=== PATIENT | female | born 1950 | race Caucasian/White ===

== ENCOUNTER → 2019-05-20 | Outpatient (CLI) | payer BC, MEDICARE ==
--- NOTE | 2019-05-20 12:25 | CT ---
EXAMINATION TYPE: CT abdomen pelvis w con DATE OF EXAM: 05/20/2019 COMPARISON: 07/19/2014 INDICATION: LLQ pain, nausea, diarrhea DLP: 775.5 mGycm, Automated exposure control for dose reduction was used. CONTRAST: 100 mL of Isovue 300. Study performed with Oral Contrast TECHNIQUE: Axial images were obtained from above the diaphragm to the pubic rami in the axial plane a t 5 mm thick sections. Reconstructed images are reviewed on the computer in the coronal plane. FINDINGS: Limited CT sections are obtained the lung bases. The lung bases are clear. CT ABDOMEN: Liver: There may be some minimal fatty infiltration of liver. Cyst appears to be present within the c audate head measuring 1.7 cm and 22 Hounsfield units. This was present previously and appears stable. Spleen: Normal, splenule is present Pancreas: Normal Adrenal glands: The adrenal glands are normal. Gallbladder: Surgically absent Kidneys: No masses are evident. No hydronephrosis is present. Peripelvic cysts are present at the i nferior pole left kidney. Delayed images were obtained through the kidneys, which remain unremarkabl e. Aorta: Vascular calcification is within the aorta. Inferior vena cava: Normal. CT PELVIS: Loops of bowel within the abdomen and pelvis are normal. Fecal debris is within the colon. Loops of bowel distended with oral contrast Unremarkable. Diverticular changes without acute diverticulitis is present. Appendix: Normal as visualized. Urinary bladder: No obvious abnormality. Some cystocele is likely present. Genitourinary structures: Uterus and ovaries are not identified. Osseous structures: No suspicious lytic or sclerotic lesions. IMPRESSIONS: 1. Diverticulosis without acute diverticulitis. 2. Cystocele of the urinary bladder is suspected.
== END | disposition home or self-care (01) ==
LOC: RADCTMAIN 10:11
PROVIDERS: ATTEND Family Medicine
DX: K57.90 Diverticulosis of intestine, part unspecified, without perforation or abscess without bleeding (principal); R10.32 Left lower quadrant pain; R50.9 Fever, unspecified
CPT/HCPCS: 82565; 84520; 74177; 36415; Q9967

== ENCOUNTER 2019-06-12 20:32 | Observation (INO) | payer MEDICARE ==
[2019-06-12 21:23] LABS: Basophils # (A) 0.1 k/uL (0-0.2); Basophils % (A) 1 %; Eosinophils # (A) 0.2 k/uL (0-0.7); Eosinophils % (A) 2 %; HCT 45.2 % (34.0-46.0); HGB 14.4 gm/dL (11.4-16.0); Lymphocytes # (A) 1.2 k/uL (1.0-4.8); Lymphocytes % (A) 14 %; MCH 29.2 pg (25.0-35.0); MCHC 31.9 g/dL (31.0-37.0); MCV 91.4 fL (80.0-100.0); Mean Platelet Volume 8.2; Monocytes # (A) 0.4 k/uL (0-1.0); Monocytes % (A) 5 %; Neutrophils # (A) 6.7 k/uL (1.3-7.7); Neutrophils % (A) 78 %; Platelet Count 193 k/uL (150-450); RBC 4.94 m/uL (3.80-5.40); WBC 8.7 k/uL (3.8-10.6)
[2019-06-12 21:32] LABS: Partial Thromboplastin Time 22.2 sec (22.0-30.0)
[2019-06-12 21:33] LABS: ALT 30 U/L (4-34); AST 41 U/L (14-36); African American GFR (CKD) >90 (>60 ml/min/1.73 sqM); Albumin 4.2 g/dL (3.5-5.0); Alkaline Phosphatase 86 U/L (38-126); Anion Gap 7 mmol/L; Blood Urea Nitrogen 21 mg/dL (7-17); Calcium 9.7 mg/dL (8.4-10.2); Carbon Dioxide 27 mmol/L (22-30); Chloride 105 mmol/L (98-107); Creatine Kinase 176 U/L (30-135); Glucose 136 mg/dL (74-99); Magnesium 1.8 mg/dL (1.6-2.3); Non-African American GFR(CKD) 87 (>60 ml/min/1.73 sqM); Potassium 4.4 mmol/L (3.5-5.1); Sodium 139 mmol/L (137-145); Total Bilirubin 1.3 mg/dL (0.2-1.3); Total Protein 7.3 g/dL (6.3-8.2)
--- NOTE | 2019-06-12 21:33 | XR ---
EXAMINATION TYPE: XR chest 2V DATE OF EXAM: 06/12/2019 COMPARISON: 03/13/2011 HISTORY: Chest pain TECHNIQUE: Frontal and lateral views of the chest are obtained. FINDINGS: There is no focal air space opacity, pleural effusion, or pneumothorax seen. The cardiac silhouette size is enlarged. The osseous structures are intact. Dextroscoliosis of the thoracic spi ne is seen. Mild multilevel degenerative change of the thoracic spine with similar slight wedging of the midthoracic vertebral body in comparison to 2012. Cholecystectomy clips are seen. IMPRESSION: No acute cardiopulmonary process.
--- NOTE | 2019-06-12 21:58 | ED ---
Chest Pain HPI - General Chief Complaint: Chest Pain Stated Complaint: Chest pain Time Seen by Provider: 06/12/19 20:49 Source: patient Mode of arrival: wheelchair Limitations: no limitations - History of Present Illness Initial Comments: The patient is a 60-year-old female with past history of hypertension who presents to the emergency room for palpitations. Patient reports that her palpitations started last night. She states when she went to bed he felt better however woke up this morning continues to have palpitations or chest. She has associated discomfort but denies chest pain. Feels like her heart racing. Reports high blood pressure. She took an extra dose of her atenolol 100 mg approximately 3 hours prior to arrival. States that she [facility] the [facility]. Last stress test was 5 years ago. Has never had a cath. Denies any other medication changes. Denies ripping or tearing sensation to her back. Denies unilateral numbness or weakness. No cough or hemoptysis. Denies nausea, vomiting or diaphoresis. There are no alleviating, precipitating or factors - Related Data Home Medications Medication Instructions Recorded Confirmed Aspirin 81 mg PO HS 11/12/13 06/13/19 Rosuvastatin Calcium [Crestor] 20 mg PO HS 11/12/13 06/13/19 Cholecalciferol [Vitamin D3 (25 5,000 unit PO HS 06/13/19 06/13/19 Mcg = 1000 Iu)] Diphenoxylate HCl/Atropine 1 tab PO TID 06/13/19 06/13/19 [Lomotil 2.5-0.025 mg Tablet] L.acidoph,Paracasei, B.lactis 1 cap PO HS 06/13/19 06/13/19 [Probiotic] Ubidecarenone [Co Q-10] 200 mg PO HS 06/13/19 06/13/19 Previous Rx's Medication Instructions Recorded Levothyroxine Sodium [Synthroid] 75 mcg PO DAILY@0630 30 Days #30 06/14/19 tab Valsartan 80 mg PO BID #60 tab 06/14/19 Allergies Allergy/AdvReac Type Severity Reaction Status Date / Time No Known Allergies Allergy Verified 06/13/19 09:48 Review of Systems ROS Statement: Those systems with pertinent positive or pertinent negative responses have been documented in the HPI. ROS Other: All systems not noted in ROS Statement are negative. EKG Findings - EKG Comments: EKG Findings:: EKG demonstrates a sinus rhythm with a ventricular rate of 70. WA interval 200. QRS 96. QTC of 432. Multiple PACs. ST elevation in aVR. ST depression in 1 and aVL. Abnormal EKG with no old EKG available for comparison Past Medical History Past Medical History: Hyperlipidemia, Hypertension, Thyroid Disorder Additional Past Medical History / Comment(s): diverticulitis History of Any Multi-Drug Resistant Organisms: None Reported Past Surgical History: Bladder Surgery, Cholecystectomy, Hysterectomy Additional Past Surgical History / Comment(s): rudy fundiplication Past Anesthesia/Blood Transfusion Reactions: No Reported Reaction Past Psychological History: No Psychological Hx Reported Smoking Status: Never smoker Past Alcohol Use History: None Reported Past Drug Use History: None Reported - Past Family History Mother History Unknown: Yes Family Medical History: CVA/TIA Father History Unknown: Yes Family Medical History: Cancer, CVA/TIA Sister(s) Family Medical History: CVA/TIA General Exam Limitations: no limitations General appearance: alert, in no apparent distress Head exam: Present: atraumatic, normocephalic, normal inspection Eye exam: Present: normal appearance, PERRL, EOMI. Absent: scleral icterus, conjunctival injection, periorbital swelling ENT exam: Present: normal exam, mucous membranes moist Neck exam: Present: normal inspection. Absent: tenderness, meningismus, lymphadenopathy Respiratory exam: Present: normal lung sounds bilaterally. Absent: respiratory distress, wheezes, rales, rhonchi, stridor Cardiovascular Exam: Present: regular rate, irregular rhythm, normal heart sounds. Absent: systolic murmur, diastolic murmur, rubs, gallop, clicks GI/Abdominal exam: Present: soft, normal bowel sounds. Absent: distended, tenderness, guarding, rebound, rigid Extremities exam: Present: normal inspection, full ROM, normal capillary refill. Absent: tenderness, pedal edema, joint swelling, calf tenderness Back exam: Present: normal inspection Neurological exam: Present: alert, oriented X3, CN II-XII intact Psychiatric exam: Present: normal affect, normal mood Skin exam: Present: warm, dry, intact, normal color. Absent: rash Course Vital Signs 06/12/19 06/12/19 20:33 22:35 Temperature 98.1 F Pulse Rate 61 61 Respiratory 20 18 Rate Blood Pressure 138/75 128/74 O2 Sat by Pulse 97 97 Oximetry Chest Pain MDM - MDM On arrival patient is placed in room 17. A thorough history and physical exam is performed. Patient does have an abnormal EKG however there is nothing to compare to. Laboratory studies were conducted. CBC and CMP are normal. Troponin is negative. BNP is 5650. Chest x-ray demonstrates no acute process. I did recommend hospital admission for which the patient did agree. She'll be admitted [facility]. I will consult cardiology. This remained in stable condition awaiting transport to the floor Disposition Clinical Impression: Palpitations Disposition: ADMITTED IP TO THIS HOSP Condition: Stable Is patient prescribed a controlled substance at d/c from ED?: No Decision to Admit Reason: Admit from EC Decision Date: 06/12/19 Decision Time: 22:53
[2019-06-12] MEDS ORDERED: NALOXONE 0.4 MG/ML 1 ML VIAL IV PRN (22:53)
[2019-06-13 06:13] LABS: Basophils % (A) 1 %; Eosinophils # (A) 0.1 k/uL (0-0.7); Eosinophils % (A) 3 %; HCT 41.4 % (34.0-46.0); Lymphocytes # (A) 1.5 k/uL (1.0-4.8); Lymphocytes % (A) 27 %; MCH 30.6 pg (25.0-35.0); MCHC 33.8 g/dL (31.0-37.0); MCV 90.7 fL (80.0-100.0); Mean Platelet Volume 8.4; Monocytes # (A) 0.3 k/uL (0-1.0); Monocytes % (A) 6 %; Neutrophils # (A) 3.4 k/uL (1.3-7.7); Neutrophils % (A) 62 %; Platelet Count 201 k/uL (150-450); RBC 4.56 m/uL (3.80-5.40); RDW 13.1 % (11.5-15.5); WBC 5.5 k/uL (3.8-10.6)
[2019-06-13 06:25] LABS: African American GFR (CKD) >90 (>60 ml/min/1.73 sqM); Anion Gap 4 mmol/L; Blood Urea Nitrogen 18 mg/dL (7-17); Calcium 9.1 mg/dL (8.4-10.2); Carbon Dioxide 30 mmol/L (22-30); Chloride 106 mmol/L (98-107); Glucose 91 mg/dL (74-99); Non-African American GFR(CKD) >90 (>60 ml/min/1.73 sqM); Potassium 4.3 mmol/L (3.5-5.1); Sodium 140 mmol/L (137-145)
[2019-06-13] MEDS: LEVOTHYROXINE 75 MCG TAB PO SCH (08:57)
[2019-06-13] MEDS: ASPIRIN 81 MG PO SCH (08:57)
[2019-06-13] MEDS ORDERED: ATORVASTATIN 40 MG TAB PO SCH (09:00)
[2019-06-13] MEDS ORDERED: ATENOLOL 25 MG TAB PO SCH (09:00)
[2019-06-13] MEDS ORDERED: LOSARTAN 25 MG TAB PO SCH ×2 (10:15→21:00)
--- NOTE | 2019-06-13 10:55 | P.CRDCN ---
History of Present Illness Consult date: 06/13/19 Requesting physician: Carlos Mitchell Reason for Consult (text): palpitations, dizziness Chief complaint: Palpitations, lightheadedness and dizziness History of present illness: This is a pleasant 68-year-old female with documented history of hypertension, hyperlipidemia, hypothyroidism, TIAs in the past, nonsmoker, drinks 2 cups of coffee per day, presents to the hospital with symptoms of dizziness, lightheadedness, heart pounding, chest discomfort which has been occurring off and on for the past couple of days. She states that when she lies down in bed, at the time of the symptoms she can feel the pounding in her neck, when she checks her blood pressure at these times it was noted to be significantly elevated. She has kept a log of her blood pressures during the symptoms. It appears that her blood pressure during this time is in the 180/100 range, she states that when she gets up to do something, the blood pressure rises, and it feels as though her heart rate goes fast. She experiences uncomfortable pounding in the chest as well as associated pressure and feels as though she may pass out at times when this happens. Her EKG on presentation here showed not normal sinus rhythm with frequent PT PACs and ST-T wave changes suggestive of hypertension strain. Patient also has lateral T-wave inversion with nonspecific anterior ST-T wave changes. Chest x-ray did not reveal any acute process. Blood pressure here 140/70 with a heart rate of 60, respirations 18. Temperature 90.8, 95% on room air. White blood cell count 5.5, hemoglobin 14, platelet count 201. Sodium 140, potassium 4.3, BUN 18, creatinine 0.5. D- dimer 0.5. TSH 1.8. [place] virus negative. Troponins 0.012, 0.025, 0.030. At the time of my examination this morning, patient overall feels well. She does state that several years ago, 10 years or more, she did wear a monitor for 24 hour period, no arrhythmia detected at that time according to her. She also states that she had a stress test around that time which was reported to be negative. Past Medical History Past Medical History: Hyperlipidemia, Hypertension, Thyroid Disorder Additional Past Medical History / Comment(s): diverticulitis History of Any Multi-Drug Resistant Organisms: None Reported Past Surgical History: Bladder Surgery, Cholecystectomy, Hysterectomy Additional Past Surgical History / Comment(s): rudy fundiplication Past Anesthesia/Blood Transfusion Reactions: No Reported Reaction Past Psychological History: No Psychological Hx Reported Smoking Status: Never smoker Past Alcohol Use History: None Reported Past Drug Use History: None Reported - Past Family History Mother History Unknown: Yes Family Medical History: CVA/TIA Father History Unknown: Yes Family Medical History: Cancer, CVA/TIA Sister(s) Family Medical History: CVA/TIA Medications and Allergies Home Medications Medication Instructions Recorded Confirmed Type Aspirin 81 mg PO HS 11/12/13 06/13/19 History Rosuvastatin Calcium [Crestor] 20 mg PO HS 11/12/13 06/13/19 History Atenolol 100 mg PO HS 06/13/19 06/13/19 History Cholecalciferol [Vitamin D3 (25 5,000 unit PO HS 06/13/19 06/13/19 History Mcg = 1000 Iu)] Diphenoxylate HCl/Atropine 1 tab PO TID 06/13/19 06/13/19 History [Lomotil 2.5-0.025 mg Tablet] L.acidoph,Paracasei, B.lactis 1 cap PO HS 06/13/19 06/13/19 History [Probiotic] Levothyroxine Sodium 88 mcg PO HS 06/13/19 06/13/19 History Ubidecarenone [Co Q-10] 200 mg PO HS 06/13/19 06/13/19 History Allergies Allergy/AdvReac Type Severity Reaction Status Date / Time No Known Allergies Allergy Verified 06/13/19 09:48 Physical Exam Vitals: Vital Signs Temp Pulse Pulse Resp BP BP Pulse Ox 06/13/19 04:00 98 F 61 16 140/79 95 06/12/19 22:35 61 18 128/74 97 06/12/19 20:33 98.1 F 61 20 138/75 97 Intake and Output 06/12/19 06/13/19 06/13/19 22:59 06:59 14:59 Intake Total 240 240 Balance 240 240 Intake: Oral 240 240 Other: # Voids 1 Weight 72.575 kg 76.4 kg PHYSICAL EXAMINATION: GENERAL: 68-year-old female in no acute distress at the time of my examination HEENT: Head is atraumatic, normocephalic. Pupils equal, round. Sclera anicteric. Conjunctiva are clear. Mucous membranes of the mouth are moist. Neck is supple. There is no elevated jugular venous pressure. No Carotid bruit is heard. HEART EXAMINATION: Heart S1, S2 soft systolic murmur is heard CHEST EXAMINATION: Lungs are clear to auscultation and precussion. No chest wall tenderness is noted on palpation or with deep breathing. ABDOMEN: Soft, nontender. Bowel sounds are heard. No organomegaly noted. EXTREMITIES: 2+ peripheral pulses with no evidence of peripheral edema and no calf tenderness noted. NEUROLOGIC patient is awake, alert and oriented X3. . Results 06/13/19 05:49 06/13/19 05:49 Cardiac Enzymes 06/12/19 06/12/19 06/13/19 Range/Units 21:10 21:10 00:56 AST 41 H (14-36) U/L Troponin I <0.012 0.025 (0.000-0.034) ng/mL 06/13/19 Range/Units 05:49 AST (14-36) U/L Troponin I 0.030 (0.000-0.034) ng/mL Coagulation 06/12/19 Range/Units 21:10 PT 10.0 (9.0-12.0) sec APTT 22.2 (22.0-30.0) sec CBC 06/12/19 06/13/19 Range/Units 21:10 05:49 WBC 8.7 5.5 (3.8-10.6) k/uL RBC 4.94 4.56 (3.80-5.40) m/uL Hgb 14.4 14.0 (11.4-16.0) gm/dL Hct 45.2 41.4 (34.0-46.0) % Plt Count 193 201 (150-450) k/uL Comprehensive Metabolic Panel 06/12/19 06/13/19 Range/Units 21:10 05:49 Sodium 139 140 (137-145) mmol/L Potassium 4.4 4.3 (3.5-5.1) mmol/L Chloride 105 106 (98-107) mmol/L Carbon Dioxide 27 30 (22-30) mmol/L BUN 21 H 18 H (7-17) mg/dL Creatinine 0.72 0.59 (0.52-1.04) mg/dL Glucose 136 H 91 (74-99) mg/dL Calcium 9.7 9.1 (8.4-10.2) mg/dL AST 41 H (14-36) U/L ALT 30 (4-34) U/L Alkaline Phosphatase 86 (38-126) U/L Total Protein 7.3 (6.3-8.2) g/dL Albumin 4.2 (3.5-5.0) g/dL Current Medications Generic Name Dose Route Start Last Admin Trade Name Freq PRN Reason Stop Dose Admin Aspirin 81 mg 06/13/19 09:00 06/13/19 08:57 Aspirin PO 81 mg DAILY PIETRO Administration Atorvastatin Calcium 80 mg 06/14/19 09:00 Lipitor PO DAILY PIETRO Levothyroxine Sodium 75 mcg 06/13/19 09:00 06/13/19 08:57 Synthroid PO 75 mcg DAILY@0630 PIETRO Administration Losartan Potassium 25 mg 06/13/19 21:00 Cozaar PO BID PIETRO Naloxone HCl 0.2 mg 06/12/19 22:53 Narcan IV Q2M PRN Opioid Reversal Intake and Output 06/12/19 06/13/19 06/13/19 22:59 06:59 14:59 Intake Total 240 240 Balance 240 240 Intake: Oral 240 240 Other: # Voids 1 Weight 72.575 kg 76.4 kg 06/13/19 05:49 06/13/19 05:49 EKG Interpretations (text) EKG shows a normal sinus rhythm with LVH strain pattern, frequent PACs. Lateral wall T-wave inversion with nonspecific anterior ST-T wave change Assessment and Plan Plan: Assessment and plan #1 symptoms of dizziness and lightheadedness, near syncope, palpitations and chest discomfort. EKG shows a normal sinus rhythm with frequent PACs, LVH strain pattern, T wave inversion laterally with nonspecific changes in the anterior leads. Troponins 0.012, 0.025, 0.030. Symptoms likely secondary to accelerated hypertension #2 Hypertension, patient has been keeping a log of her blood pressures at home which have been intermittently quite high #3 hypothyroidism #4 hyperlipidemia Plan We will obtain an echocardiogram with Doppler study. Increase her dose of Crestor, add losartan 25 mg one tablet by mouth twice a day to her medication regime. Further recommendations to follow. DNP note has been reviewed, I agree with a documented findings and plan of care. Patient was seen and examined.
[2019-06-13 11:00] LABS: Cholesterol 149 mg/dL (<200); HDL Cholesterol 70 mg/dL (40-60); LDL Cholesterol,Calculated 61 mg/dL (0-99); Triglycerides 90 mg/dL (<150)
[2019-06-13] MEDS: LOSARTAN 25 MG TAB PO SCH ×2 (11:39→20:00)
--- NOTE | 2019-06-13 12:38 | P.HPIM ---
History of Present Illness 68-year-old female came in with comments of the dizziness lightheadedness and chest pressure like sensation. Patient was having palpitations. This has been going on for about the 3-4 days. Patient is found to have frequent PVCs which is again due to tachycardia and irregular rhythm. Patient is on atenolol at home. Patient just pain is pressure like sensation nonradiatingis a diaphoresis nausea. Patient chest pain is nonpleuritic not associated with food. Patient blood pressure was elevated apparently yesterday. Patient denied any fever chills. Patient had an echocardiogram which showed left and hypertrophy with T-wave inversions laterally and anterior leads consistent with uncontrolled hypertension Review of Systems REVIEW OF SYSTEMS: CONSTITUTIONAL: No fever, no malaise, no fatigue. HEENT: No recent visual problems or hearing problems. Denied any sore throat. CARDIOVASCULAR: As mentioned in HPI PULMONARY: no cough, no hemoptysis. GASTROINTESTINAL: No diarrhea, no nausea, no vomiting, no abdominal pain. NEUROLOGICAL: No headaches, no weakness, no numbness. HEMATOLOGICAL: Denies any bleeding or petechiae. GENITOURINARY: Denies any burning micturition, frequency, or urgency. MUSCULOSKELETAL/RHEUMATOLOGICAL: Denies any joint pain, swelling, or any muscle pain. ENDOCRINE: Denies any polyuria or polydipsia. The rest of the 14-point review of systems is negative. Past Medical History Past Medical History: Hyperlipidemia, Hypertension, Thyroid Disorder Additional Past Medical History / Comment(s): diverticulitis History of Any Multi-Drug Resistant Organisms: None Reported Past Surgical History: Bladder Surgery, Cholecystectomy, Hysterectomy Additional Past Surgical History / Comment(s): rudy fundiplication Past Anesthesia/Blood Transfusion Reactions: No Reported Reaction Past Psychological History: No Psychological Hx Reported Smoking Status: Never smoker Past Alcohol Use History: None Reported Past Drug Use History: None Reported - Past Family History Mother History Unknown: Yes Family Medical History: CVA/TIA Father History Unknown: Yes Family Medical History: Cancer, CVA/TIA Sister(s) Family Medical History: CVA/TIA Medications and Allergies Home Medications Medication Instructions Recorded Confirmed Type Aspirin 81 mg PO HS 11/12/13 06/13/19 History Rosuvastatin Calcium [Crestor] 20 mg PO HS 11/12/13 06/13/19 History Atenolol 100 mg PO HS 06/13/19 06/13/19 History Cholecalciferol [Vitamin D3 (25 5,000 unit PO HS 06/13/19 06/13/19 History Mcg = 1000 Iu)] Diphenoxylate HCl/Atropine 1 tab PO TID 06/13/19 06/13/19 History [Lomotil 2.5-0.025 mg Tablet] L.acidoph,Paracasei, B.lactis 1 cap PO HS 06/13/19 06/13/19 History [Probiotic] Levothyroxine Sodium 88 mcg PO HS 06/13/19 06/13/19 History Ubidecarenone [Co Q-10] 200 mg PO HS 06/13/19 06/13/19 History Allergies Allergy/AdvReac Type Severity Reaction Status Date / Time No Known Allergies Allergy Verified 06/13/19 09:48 Physical Exam Vitals: Vital Signs Temp Pulse Pulse Resp BP BP Pulse Ox 06/13/19 08:00 98.4 F 55 L 16 140/85 97 06/13/19 04:00 98 F 61 16 140/79 95 06/12/19 22:35 61 18 128/74 97 06/12/19 20:33 98.1 F 61 20 138/75 97 Intake and Output 06/12/19 06/13/19 06/13/19 22:59 06:59 14:59 Intake Total 240 240 Balance 240 240 Intake: Oral 240 240 Other: # Voids 1 Weight 72.575 kg 76.4 kg PHYSICAL EXAMINATION: GENERAL: The patient is alert and oriented x3, not in any acute distress. Well developed, well nourished. HEENT: Pupils are round and equally reacting to light. EOMI. No scleral icterus. No conjunctival pallor. Normocephalic, atraumatic. No pharyngeal erythema. No thyromegaly. CARDIOVASCULAR: S1 and S2 present. No murmurs, rubs, or gallops. PULMONARY: Chest is clear to auscultation, no wheezing or crackles. ABDOMEN: Soft, nontender, nondistended, normoactive bowel sounds. No palpable organomegaly. MUSCULOSKELETAL: No joint swelling or deformity. EXTREMITIES: No cyanosis, clubbing, or pedal edema. NEUROLOGICAL: Gross neurological examination did not reveal any focal deficits. SKIN: No rashes. Results CBC & Chem 7: 06/13/19 05:49 06/13/19 05:49 Labs: Abnormal Lab Results - Last 24 Hours (Table) 06/12/19 06/13/19 06/13/19 Range/Units 21:10 05:49 05:49 BUN 21 H 18 H (7-17) mg/dL Glucose 136 H (74-99) mg/dL AST 41 H (14-36) U/L Creatine Kinase 176 H (30-135) U/L HDL Cholesterol 70 H (40-60) mg/dL Thrombosis Risk Factor Assmnt - Choose All That Apply Each Risk Factor Represents 2 Points: Age 61-74 years Thrombosis Risk Factor Assessment Total Risk Factor Score: 2 Thrombosis Risk Factor Assessment Level: Low Risk Assessment and Plan Plan: 1 symptoms of dizziness, near syncope patient's: Secondary to frequent PVCs. Her beta irma was discontinued and patient will be monitored overnight beta irma was discontinued to unmask rhythm and rate abnormalities. Patient was started on losartan for elevated blood pressure. -Hypertension: Uncontrolled blood pressure for which patient was started on losartan -Hypothyroidism 11 hyperlipidemia and patient was started on Crestor Lantus to monitor overnight for any rhythm abnormalities on telemetry.
[2019-06-14] MEDS: LEVOTHYROXINE 75 MCG TAB PO SCH (06:02)
[2019-06-14] MEDS: LOSARTAN 25 MG TAB PO SCH (07:47)
[2019-06-14] MEDS: ASPIRIN 81 MG PO SCH (07:47)
[2019-06-14] MEDS ORDERED: LOSARTAN 25 MG TAB PO STA (08:02)
[2019-06-14 08:06] VITALS: TEMP 97.3
--- NOTE | 2019-06-14 08:53 | ECHOF ---
Referral Reason:chest pain MEASUREMENTS -------- HEIGHT: 162.6 cm WEIGHT: 76.2 kg BP: 140/79 RVIDd: 3.1 cm (< 3.3) IVSd: 1.4 cm (0.6 - 1.1) LVIDd: 4.6 cm (3.9 - 5.3) LVPWd: 1.4 cm (0.6 - 1.1) IVSs: 1.7 cm LVIDs: 3.2 cm LVPWs: 2.0 cm LA Diam: 4.3 cm (2.7 - 3.8) LAESV Index (A-L): 32.92 ml/m Ao Diam: 3.2 cm (2.0 - 3.7) AV Cusp: 1.9 cm (1.5 - 2.6) MV EXCURSION: 22.213 mm (> 18.000) MV EF SLOPE: 73 mm/s (70 - 150) EPSS: 0.9 cm MV E Kulwant: 0.76 m/s MV DecT: 183 ms MV A Kulwant: 0.41 m/s MV E/A Ratio: 1.84 AR PHT: 1611 ms RAP: 5.00 mmHg RVSP: 22.92 mmHg FINDINGS -------- Resting bradycardia (HR<60bpm). This was a technically good study. The left ventricular size is normal. There is moderate concentric left ventricular hypertrophy. O verall left ventricular systolic function is low-normal with, an EF between 50 - 55 %. The right ventricle is normal in size. LA is midly dilated 29-33ml/m2. The right atrium is normal in size. Interatrial and interventricular septum intact. There is mild aortic valve sclerosis. There is mild aortic regurgitation. Mild mitral annular calcification present. There is trace to mild mitral regurgitation. Mild tricuspid regurgitation present. Right ventricular systolic pressure is normal at < 35 mmHg. Trace/mild (physiologic) pulmonic regurgitation. The aortic root size is normal. Normal inferior vena cava with normal inspiratory collapse consistent with estimated right atrial pre ssure of 5 mmHg. There is no pericardial effusion. CONCLUSIONS -------- 1. Resting bradycardia (HR<60bpm). 2. This was a technically good study. 3. The left ventricular size is normal. 4. There is moderate concentric left ventricular hypertrophy. 5. Overall left ventricular systolic function is low-normal with, an EF between 50 - 55 %. 6. The right ventricle is normal in size. 7. LA is midly dilated 29-33ml/m2. 8. The right atrium is normal in size. 9. Interatrial and interventricular septum intact. 10. There is mild aortic valve sclerosis. 11. There is mild aortic regurgitation. 12. Mild mitral annular calcification present. 13. There is trace to mild mitral regurgitation. 14. Mild tricuspid regurgitation present. 15. Right ventricular systolic pressure is normal at < 35 mmHg. 16. Trace/mild (physiologic) pulmonic regurgitation. 17. The aortic root size is normal. 18. Normal inferior vena cava with normal inspiratory collapse consistent with estimated right atrial pressure of 5 mmHg. 19. There is no pericardial effusion. [employer]ICULT[employer]ICS TEACHER: Renee Humphries RDCS
[2019-06-14] MEDS ORDERED: ATORVASTATIN 80 MG TAB PO SCH (09:00)
[2019-06-14 10:57] VITALS: BP 157/80; PULSE 48; RESP 16
--- NOTE | 2019-06-14 12:56 | P.PN ---
Subjective Progress Note Date: 06/14/19 This is a pleasant 68-year-old female with documented history of hypertension, hyperlipidemia, hypothyroidism, TIAs in the past, nonsmoker, drinks 2 cups of coffee per day, presents to the hospital with symptoms of dizziness, lightheadedness, heart pounding, chest discomfort which has been occurring off and on for the past couple of days. She states that when she lies down in bed, at the time of the symptoms she can feel the pounding in her neck, when she checks her blood pressure at these times it was noted to be significantly elevated. She has kept a log of her blood pressures during the symptoms. It appears that her blood pressure during this time is in the 180/100 range, she states that when she gets up to do something, the blood pressure rises, and it feels as though her heart rate goes fast. She experiences uncomfortable pounding in the chest as well as associated pressure and feels as though she may pass out at times when this happens. Her EKG on presentation here showed not normal sinus rhythm with frequent PT PACs and ST-T wave changes suggestive of hypertension strain. Patient also has lateral T-wave inversion with nonspecific anterior ST-T wave changes. Chest x-ray did not reveal any acute process. Blood pressure here 140/70 with a heart rate of 60, respirations 18. Temperature 90.8, 95% on room air. White blood cell count 5.5, hemoglobin 14, platelet count 201. Sodium 140, potassium 4.3, BUN 18, creatinine 0.5. D- dimer 0.5. TSH 1.8. [place] virus negative. Troponins 0.012, 0.025, 0.030. At the time of my examination this morning, patient overall feels well. She does state that several years ago, 10 years or more, she did wear a monitor for 24 hour period, no arrhythmia detected at that time according to her. She also states that she had a stress test around that time which was reported to be negative. 06/14/2019 Patient was seen and examined today by Dr. Brown. Echocardiogram with Doppler study was performed which revealed an ejection fraction of 50-55%. Blood pressure this morning 166/90, heart rate in the 50s, 95% on room air. Dr. Loo has ordered the patient to receive an extra dose of losartan this morning, we will also increase her dose of beta irma. On discharge we recommend discharging her home on valsartan 80 mg 1 tablet by mouth twice a day which he will gradually increase as an outpatient. Patient has been advised to check her blood pressure in the morning and the evening and document. She will follow-up with Dr. Brown in the office in a couple of days. Objective - Vital Signs Vital signs: Vital Signs Temp 97.3 F L 06/14/19 07:54 Pulse 48 L 06/14/19 10:55 Resp 16 06/14/19 10:55 BP 157/80 06/14/19 10:55 Pulse Ox 97 06/14/19 10:55 Intake & Output 06/13/19 06/14/19 06/14/19 18:59 06:59 18:59 Intake Total 240 10 236 Balance 240 10 236 Weight 76 kg Intake: IV 10 0.9 10 Oral 240 236 Other: # Voids 1 2 - Exam PHYSICAL EXAMINATION: GENERAL: 68-year-old female in no acute distress at the time of my examination HEENT: Head is atraumatic, normocephalic. Pupils equal, round. Sclera anicteric. Conjunctiva are clear. Mucous membranes of the mouth are moist. Neck is supple. There is no elevated jugular venous pressure. No Carotid bruit is heard. HEART EXAMINATION: Heart S1, S2 normal CHEST EXAMINATION: Lungs are clear to auscultation and precussion. No chest wall tenderness is noted on palpation or with deep breathing. ABDOMEN: Soft, nontender. Bowel sounds are heard. No organomegaly noted. EXTREMITIES: 2+ peripheral pulses with no evidence of peripheral edema and no calf tenderness noted. NEUROLOGIC patient is awake, alert and oriented X3. - Labs CBC & Chem 7: 06/13/19 05:49 06/13/19 05:49 Assessment and Plan Plan: Assessment and plan #1 symptoms of dizziness and lightheadedness, near syncope, palpitations and chest discomfort. EKG shows a normal sinus rhythm with frequent PACs, LVH strain pattern, T wave inversion laterally with nonspecific changes in the anterior leads. Troponins 0.012, 0.025, 0.030. Symptoms likely secondary to accelerated hypertension #2 Hypertension, patient has been keeping a log of her blood pressures at home which have been intermittently quite high #3 hypothyroidism #4 hyperlipidemia Plan Echocardiogram with Doppler study was performed which revealed a normal left ventricular systolic function. Blood pressure remains elevated this morning, patient will receive an extra dose of angiotensin irma and on discharge we will send her with valsartan 80 mg 1 tablet by mouth twice a day. We will increase her beta irma to 50 mg twice a day. She may be able to be discharged home today from our perspective, she's been advised to check her blood pressure in the morning and evening and to document this. We will make her a follow-up appointment with Dr. Brown in the office early next week. DNP note has been reviewed, I agree with a documented findings and plan of care. Patient was seen and examined.
--- NOTE | 2019-06-14 13:31 | P.DS ---
Providers Date of admission: 06/12/19 22:53 Expected date of discharge: 06/14/19 Attending physician: Carlos Mitchell Consults: 06/12/19 22:54 Consult Physician Urgent Consulting Provider: [facility] Consult Reason/Comments: acute palpitations Do you want consulting provider notified?: Yes Primary care physician: Leila Ding [facility] Course: Final diagnosis -symptoms of dizziness, near syncope: Secondary to frequent PVCs. -Hypertension -Hypothyroidism -hyperlipidemia Discharge disposition Patient is being discharged in a stable condition with guarded prognosis to . Patient will also need to follow-up with Dr. ding along with cardiology in the outpatient setting. Patient will continue with valsartan and instructed to keep a diary of a.m. and p.m. blood pressure readings for primary care along with cardiology follow-up as scheduled. Total time taken is 35 minutes. History of present illness This is a 68-year-old female who was recently admitted with dizziness, lightheadedness, and chest pressure like sensation and was being closely monitored. Cardiology following. Patient states she was having palpitations with some PVCs noted on EKG. Patient underwent an echo showing overall left ventricular systolic function is low to normal with an EF of 50-55%. Patient was initiated on valsartan 80 mg twice daily and will continue in the outpatient setting. Patient instructed to keep a diary of a.m. and p.m. blood pressure readings for primary care and cardiology followed up as scheduled. Currently no reports of chest pain, shortness of breath, or palpitations. Patient denies any dizziness or lightheadedness and is tolerating adjustments in medications thus far. Patient is afebrile . No reports of nausea or vomiting and patient is tolerating diet. On exam vital signs are stable. Temp is 97.3F, pulse is 58, respirations are 16, blood pressure is 157/80, oxygen saturation is 97% on room air. Cardio S1, S2 are present. Respiratory system shows clear to auscultation. Abdomen is soft, thin, and non-tender. Nervous system shows no focal deficits. Please refer to medication reconciliation sheet for a list of medications. Patient Condition at Discharge: Stable Plan - Discharge Summary Discharge Rx Participant: No New Discharge Prescriptions: New Valsartan 80 mg PO BID #60 tab Levothyroxine Sodium [Synthroid] 75 mcg PO DAILY@30 30 Days #30 tab Continue Rosuvastatin Calcium [Crestor] 20 mg PO HS Aspirin 81 mg PO HS Cholecalciferol [Vitamin D3 (25 Mcg = 1000 Iu)] 5,000 unit PO HS Diphenoxylate HCl/Atropine [Lomotil 2.5-0.025 mg Tablet] 1 tab PO TID L.acidoph,Paracasei, B.lactis [Probiotic] 1 cap PO HS Ubidecarenone [Co Q-10] 200 mg PO HS Discontinued Atenolol 100 mg PO HS Levothyroxine Sodium 88 mcg PO HS Discharge Medication List Aspirin 81 mg PO HS 11/12/13 [History] Rosuvastatin Calcium [Crestor] 20 mg PO HS 11/12/13 [History] Cholecalciferol [Vitamin D3 (25 Mcg = 1000 Iu)] 5,000 unit PO HS 06/13/19 [History] Diphenoxylate HCl/Atropine [Lomotil 2.5-0.025 mg Tablet] 1 tab PO TID 06/13/19 [History] L.acidoph,Paracasei, B.lactis [Probiotic] 1 cap PO HS 06/13/19 [History] Ubidecarenone [Co Q-10] 200 mg PO HS 06/13/19 [History] Levothyroxine Sodium [Synthroid] 75 mcg PO DAILY@0630 30 Days #30 tab 06/14/19 [Rx] Valsartan 80 mg PO BID #60 tab 06/14/19 [Rx] Follow up Appointment(s)/Referral(s): Sanchez Brown MD [STAFF PHYSICIAN] - 06/18/19 10:15 am () Leila Ding MD [Primary Care Provider] - 1-2 days (Office closed for Monday, please call on Monday to schedule follow up with Tammy.) Patient Instructions/Handouts: Heart Palpitations (ED), Heart Healthy Diet (DC), Hypertension (DC) Activity/Diet/Wound Care/Special Instructions: Prescriptions sent to [facility]. Activity Limited until follow-up Follow-up with primary care provider upon discharge Follow-up with cardiology as discussed and scheduled Continue current diet Keep a diary of blood pressure readings for primary care and cardiology follow- up. Discharge Disposition: HOME SELF-CARE
[2019-06-14] MEDS ORDERED: LOSARTAN 50 MG TAB PO SCH (21:00)
== END 2019-06-14 14:04 | disposition home or self-care (01) ==
LOC: EC 20:32 → SUPCPDRO 20:32 → 3SCARD 22:53
PROVIDERS: ADMIT Hospitalist; ATTEND Hospitalist
DX: R00.2 Palpitations (principal); R55 Syncope and collapse; R07.89 Other chest pain; I10 Essential (primary) hypertension; E78.5 Hyperlipidemia, unspecified; E03.9 Hypothyroidism, unspecified; I49.3 Ventricular premature depolarization; Z86.73 Personal history of transient ischemic attack (TIA), and cerebral infarction without residual deficits; Z90.710 Acquired absence of both cervix and uterus; Z90.49 Acquired absence of other specified parts of digestive tract; Z98.890 Other specified postprocedural states; Z82.3 Family history of stroke; Z79.82 Long term (current) use of aspirin; Z79.890 Hormone replacement therapy; Z79.899 Other long term (current) drug therapy; Z11.59 Encounter for screening for other viral diseases
CPT/HCPCS: 93005 ×2; 99285; 36415; 93306; 85379; 83880; 80061; 80053; 80048; 84443; 82550; 83735; 84484 ×2; 85025 ×2; 85610; 85730; 87635; 71046; G0378 ×3

== ENCOUNTER → 2020-05-15 | Outpatient (CLI) | payer MEDICARE ==
--- NOTE | 2020-05-17 14:17 | MR ---
EXAMINATION TYPE: MR iac wo/w con DATE OF EXAM: 05/15/2020 COMPARISON: 06/16/2011 HISTORY: 69-year-old female H93.3x9, H91.90, Right acoustic nerve disorder, hearing loss TECHNIQUE: Multiplanar, multisequence images of the brain and brainstem were acquired before and aft er administration of 7 mL IV Gadavist. Diffusion weighted imaging was performed. Additional coned-d own sequences through the internal auditory canals and posterior cranial fossa before and after IV co ntrast administration. FINDINGS: Diffusion weighted images demonstrate no evidence of an acute ischemic lesion in the brain. T2/FLAIR weighted sequences demonstrate moderate to severe scattered burden of bright signal change p rimarily in the deep white matter regions but also in the subcortical and periventricular regions. Ch anges are progressed from 2012. Patchy signal change redemonstrated within the bilateral paramedian p ons. Previous small area of cortical encephalomalacia and gliosis is not as well apparent now along t he left posterior central gyrus. Midline structures demonstrate partially empty sella and stable prominent arachnoid granulations angel g the posterior midline occipital calvarium. Otherwise, normal morphology. The craniocervical juncti on is normal. There is mild cerebral atrophy. The ventricles are of normal caliber. There is no evidence of an acute intracranial hemorrhage, infarct, mass, mass-effect or an extra-axia l fluid collection. There is no cerebellopontine angle mass. The internal auditory canals are symmetric. Brainstem and skull base abnormalities are not seen. Post contrast images demonstrate no evidence of pathologic enhancement in the posterior cranial vikki a or the internal auditory canals. There is no abnormal enhancement of the labyrinths. There is mild mucosal thickening within the ethmoid air cells and frontal sinuses. Globes are intact. IMPRESSION: 1. Mild cerebral atrophy. Moderate to severe scattered burden of chronic small vessel ischemic diseas e shows progressing compared to 2011. Very small area of previous encephalomalacia and gliosis is red emonstrated along the left postcentral gyrus and could reflect sequela of prior vascular or traumatic insult. 2. No acute intracranial abnormality seen. 3. No specific abnormality on acoustic MRI. 4. Mild chronic ethmoid and frontal sinus disease.
== END | disposition home or self-care (01) ==
LOC: RADMRIMAIN 10:36
PROVIDERS: ATTEND Otolaryngology
DX: G31.9 Degenerative disease of nervous system, unspecified (principal); J32.2 Chronic ethmoidal sinusitis
CPT/HCPCS: 70553; A9585

== ENCOUNTER → 2020-07-01 | Outpatient (CLI) | payer MEDICARE ==
[2020-07-01 20:55] LABS: Basophils # (A) 0.04 X 10*3/uL (0.00-0.10); Basophils % (A) 0.6 %; Eosinophils # (A) 0.27 X 10*3/uL (0.04-0.35); Eosinophils % (A) 4.1 %; HGB 12.9 g/dL (12.0-15.0); Lymphocytes # (A) 2.07 X 10*3/uL (0.90-5.00); Lymphocytes % (A) 31.2 %; MCH 28.5 pg (27.0-32.0); MCHC 30.7 g/dL (32.0-37.0); MCV 92.9 fL (80.0-97.0); Mean Platelet Volume 11.1 fL (9.5-12.2); Monocytes # (A) 0.52 X 10*3/uL (0.20-1.00); Monocytes % (A) 7.8 %; Neutrophils % (A) 55.8 %; Platelet Count 275 X 10*3/uL (140-440); RBC 4.52 X 10*6/uL (4.10-5.20); RDW 12.7 % (11.5-14.5); WBC 6.63 X 10*3/uL (4.50-10.00)
[2020-07-01 21:46] LABS: INR 0.97 (0.90-1.11); Partial Thromboplastin Time 29.9 sec (23.5-31.0); Prothrombin Time 10.6 sec (9.9-11.9)
[2020-07-01 21:58] LABS: Cardiolipin Ab IgG Interp NEGATIVE (NEGATIVE); Cardiolipin IgA Antibody 3.6 U/mL
[2020-07-01 21:59] LABS: Cardiolipin Ab IgM Interp NEGATIVE (NEGATIVE); Cardiolipin IgM Antibody 2.7 U/mL
[2020-07-01 23:42] LABS: Erythrocyte Sedimentation Rate 46 mm/Hr (0-30)
[2020-07-02 00:47] LABS: T4, Free (Free Thyroxine) 1.5 ng/dL (0.80-1.80)
[2020-07-02 03:32] LABS: African American GFR (CKD) 59.3 (60.0-200.0); Albumin 4.4 g/dL (3.80-4.90); Albumin/Globulin Ratio 1.57 (1.60-3.17); BUN/Creat Ratio 25.45 Ratio (12.00-20.00); Calcium 9.9 mg/dL (8.7-10.3); Globulin 2.8 g/dL (1.6-3.3); LDL Cholesterol,Calculated 57.8 mg/dL (0.0-131.0); Non-African American GFR(CKD) 51.2 (60.0-200.0); Potassium 4.9 mmol/L (3.5-5.5); Total Bilirubin 1.1 mg/dL (0.2-1.2); Total Protein 7.2 g/dL (6.2-8.2); VLDL Calculation 21.2 mg/dL (5.00-40.00)
[2020-07-02 10:55] LABS: APTT 44 Sec(s) (<43); APTT 1:1 Mix 35 Sec(s) (<43); Dilute Russell Viper Venom 41 Sec(s) (<44)
== END | disposition home or self-care (01) ==
LOC: LABWHC1 10:50
PROVIDERS: ATTEND Psychiatry & Neurology Neurology
DX: Z00.00 Encounter for general adult medical examination without abnormal findings (principal); I63.9 Cerebral infarction, unspecified; G45.9 Transient cerebral ischemic attack, unspecified; R53.83 Other fatigue; R93.89 Abnormal findings on diagnostic imaging of other specified body structures
CPT/HCPCS: 36415; 80053; 80061; 82306; 82607; 83036; 83090; 84439; 84443; 85025; 85610; 85613; 85652; 85730; 85732; 86038; 86147; 86618

== ENCOUNTER → 2020-07-30 | Outpatient (CLI) | payer MEDICARE ==
--- NOTE | 2020-07-31 07:46 | US ---
EXAMINATION TYPE: US carotid duplex BILAT DATE OF EXAM: 07/30/2020 COMPARISON: NONE CLINICAL HISTORY: Z86.73 TIA. lightheaded, history of TIA EXAM MEASUREMENTS: RIGHT: Peak Systolic Velocity (PSV) cm/sec ----- Right CCA: 68.6 ----- Right ICA: 99.6 ----- Right ECA: 90.8 ICA/CCA ratio: 1.5 RIGHT: End Diastole cm/sec ----- Right CCA: 18.8 ----- Right ICA: 28.1 ----- Right ECA: 14.9 LEFT: Peak Systolic Velocity (PSV) cm/sec ----- Left CCA: 59.8 ----- Left ICA: 72.1 ----- Left ECA: 55.2 ICA/CCA ratio: 1.2 LEFT: End Diastole cm/sec ----- Left CCA: 17.1 ----- Left ICA: 29.3 ----- Left ECA: 7.5 VERTEBRALS (direction of flow): Right Vertebral: Antegrade Left Vertebral: Antegrade Rhythm: Normal Mild plaque bilateral bifurcations. Tortuous right ICA. no evidence of elevated velocities IMPRESSION: No sonographic evidence for hemodynamically significant stenosis in the carotid arteries. Criteria for Assigning % of Stenosis / Diameter reduction (Estimation based on the indirect measurements of the internal carotid artery velocities (ICA PSV). 1. Normal (no stenosis)=ICA PSV < 125 cm/s: ratio < 2.0: ICA EDV<40 cm/s. 2. Less than 50% stenosis=ICA PSV < 125 cm/s: ratio < 2.0: ICA EDV<40 cm/s. 3. 50 to 69% stenosis=ICA PSV of 125 to 230 cm/s: ration 2.0 ? 4.0: ICA EDV 40-100 cm/s. 4. Greater than 70% stenosis to near occlusion= ICA PSV > 230 cm/s: ratio > 4.0: ICA EDV > 100 cm/s. 5. Near occlusion= ICA PSV velocities may be low or undetectable: variable ratio and ICA EDV. 6. Total occlusion=unable to detect flow.
== END | disposition home or self-care (01) ==
LOC: RADUSWWP 16:50
PROVIDERS: ATTEND Psychiatry & Neurology Neurology
DX: Z86.73 Personal history of transient ischemic attack (TIA), and cerebral infarction without residual deficits (principal)
CPT/HCPCS: 93880

== ENCOUNTER → 2021-01-25 | Outpatient (CLI) | payer MEDICARE ==
--- NOTE | 2021-01-25 11:20 | MM ---
Reason for exam: screening (asymptomatic). Last mammogram was performed 9 years and 1 month ago. History: Patient is postmenopausal. Physical Findings: A clinical breast exam by your physician is recommended on an annual basis and results should be correlated with mammographic findings. MG 3D Screening Mammo W/Cad Bilateral CC and MLO view(s) were taken. Prior study comparison: December 13, 2011, bilateral digital screening mammo w/CAD. August 25, 2009, bilateral digital screening mammogram. The breast tissue is heterogeneously dense. This may lower the sensitivity of mammography. There are benign appearing round, vascular, dystrophic calcifications bilaterally. There is no discrete abnormality. ASSESSMENT: Benign, BI-RAD 2 RECOMMENDATION: Routine screening mammogram of both breasts in 1 year.
== END | disposition home or self-care (01) ==
LOC: RADMAMWWP 09:56
PROVIDERS: ATTEND Family Medicine
DX: Z12.31 Encounter for screening mammogram for malignant neoplasm of breast (principal); Z78.0 Asymptomatic menopausal state
CPT/HCPCS: 77063; 77067

== ENCOUNTER → 2021-04-26 | Outpatient (CLI) | payer MEDICARE ==
--- NOTE | 2021-04-26 10:56 | US ---
EXAMINATION TYPE: US abdomen limited DATE OF EXAM: 04/26/2021 COMPARISON: NONE CLINICAL HISTORY: 70-year-old female R94.5 Abnormal results of liver function studies. Elevated LFT. TECHNIQUE: Multiple sonographic images of the right upper quadrant are obtained. FINDINGS: EXAM MEASUREMENTS: Liver Length: 13.5 cm Gallbladder Wall: Surgically absent CBD: .6 cm Right Kidney: 8.4 x 3.9 x 2.8 cm Pancreas: Only a small portion of the pancreatic neck/body is seen. Head and tail obscured by bowel gas shadowing. Liver: Slight coarsened echotexture may be undetectable basis. Gallbladder: Surgically absent Evidence for sonographic Wlash's sign: No CBD: Upper limits of normal, acceptable given patient's age and postcholecystectomy status. Right Kidney: Cystic area seen upper pole 1.7 x 1.9 x 1.5 cm. No hydronephrosis. IMPRESSION: 1. Slightly coarsened echotexture of the liver parenchyma may be on a technical basis or could reflec t mild nonspecific hepatocellular disease. 2. Bile duct caliber 6 mm, acceptable given patient's age and postcholecystectomy status. 3. Incidental benign right upper pole renal cyst measuring 1.9 cm.
== END | disposition home or self-care (01) ==
LOC: RADUSWWP 09:27
PROVIDERS: ATTEND Family Medicine
DX: K76.89 Other specified diseases of liver (principal); N28.1 Cyst of kidney, acquired
CPT/HCPCS: 76705

== ENCOUNTER → 2021-08-11 | Outpatient (CLI) | payer MEDICARE ==
[2021-08-11 18:28] LABS: LDL Cholesterol,Calculated 58.3 mg/dL (0.0-131.0)
== END | disposition home or self-care (01) ==
LOC: LABWHC1 12:41
PROVIDERS: ATTEND Internal Medicine Clinical Cardiac Electrophysiology
DX: E78.5 Hyperlipidemia, unspecified (principal)
CPT/HCPCS: 36415; 80061

== ENCOUNTER → 2021-10-04 | Outpatient (CLI) | payer MEDICARE ==
[2021-10-04 19:09] LABS: African American GFR (CKD) 52.7 (60.0-200.0); Albumin 4.1 g/dL (3.8-4.9); Albumin/Globulin Ratio 1.58 (1.60-3.17); Anion Gap 9.9 mmol/L (10.00-18.00); BUN/Creat Ratio 21.58 Ratio (12.00-20.00); Blood Urea Nitrogen 25.9 mg/dL (9.0-27.0); Calcium 9.7 mg/dL (8.7-10.3); Carbon Dioxide 29.1 mmol/L (20.0-27.5); Globulin 2.6 g/dL (1.6-3.3); Non-African American GFR(CKD) 45.4 (60.0-200.0); Potassium 5.5 mmol/L (3.5-5.5); Total Bilirubin 0.5 mg/dL (0.30-1.20); Total Protein 6.7 g/dL (6.2-8.2)
== END | disposition home or self-care (01) ==
LOC: LABWHC1 13:19
PROVIDERS: ATTEND Internal Medicine Gastroenterology
DX: R79.89 Other specified abnormal findings of blood chemistry (principal)
CPT/HCPCS: 36415; 80053

== ENCOUNTER → 2021-11-01 | Outpatient (CLI) | payer MEDICARE ==
[2021-11-02 10:43] LABS: Gliadin AB IgG, Deaminated NEGATIVE (NEGATIVE); Gliadin AB IgG, Unit <0.4 U/mL
[2021-11-02 20:19] LABS: Gliadin AB IgA, Deaminated NEGATIVE (NEGATIVE); Gliadin AB IgA, Unit 0.7 U/mL
== END | disposition home or self-care (01) ==
LOC: LABWHC1 12:39
PROVIDERS: ATTEND Internal Medicine Gastroenterology
DX: K52.9 Noninfective gastroenteritis and colitis, unspecified (principal)
CPT/HCPCS: 36415; 83516

== ENCOUNTER 2021-12-24 06:50 | Day surgery (SDC) | payer MEDICARE ==
[2021-12-22 11:39] VITALS: BMI 26.6
[~2021-12-24 06:50] MED LIST: LACTATED RINGERS 1,000 ML IV SCH
[2021-12-24 07:21] VITALS: RESP 20; TEMP 97
[2021-12-24] MEDS ORDERED: PROPOFOL 10 MG/ML 20 ML VIAL IV ONE (07:40)
[2021-12-24] MEDS ORDERED: LIDOCAINE 2% INJ 20 MG/ML (2 ML VIAL) ONE (07:40)
--- NOTE | 2021-12-24 08:07 | P.PCN ---
Date of Procedure: 12/24/21 Procedure(s) Performed: Brief history: Patient is a pleasant 31-year-old white female scheduled for an elective upper endoscopy as well as colonoscopy as a part of evaluation of GERD and chronic diarrhea of several months duration Procedure performed: Esophagogastroduodenoscopy with biopsy Colonoscopy with random biopsy Preoperative diagnosis: GERD and chronic diarrhea Anesthesia: [facility] [place] Procedure: After informed consent was obtained from the patient was brought into the endoscopy unit and IV sedation was administered by anesthesia under continuous monitoring. Initially upper endoscopy was done. The Olympus GF 160 video endoscope was inserted inserted into the mouth and esophagus intubated with some difficulty and was gradually advanced into the stomach and duodenum and carefully examined. The bulb and second part of the duodenum appeared normal. Biopsiesere done from the duodenum to rule out celiac disease. The scope was then withdrawn into the stomach adequately insufflated with air and upon careful examination the anscattered erosions and biopsies were done from this area. od y, cardia and fundus appeared normal. The scope was then withdrawn into the esophagus. The GE junction was located at 35 cm to the incisors. small hiatal hernia noted. It appeared regular with no erythema erosions or ulcerations. Rest of the esophagus appeared normal. Patient tolerated the procedure well. At this time the patient continued to remain sedation. Initial digital rectal examination was normal. Olympus CF 160 video colonoscope was then inserted into the rectum and gradually advanced to the cecum without any difficulty. Careful examination was performed as the scope was gradually being withdrawn. The prep was excellent. The cecum, ascending colon, transverse colon, descending colon, sigmoid colon and rectum appeared normal. random biopsies were done from ascending and descending colon to rule out polyps/collagenous colitis. Retroflexion was performed in the rectum and no lesions were noted. Patient tolerated the procedure well. Impression: 1.Upper endoscopy revealed antral erosive gastritis and small hiatal hernia 2.Colonoscopy revealed scattered left sided diverticulosis but no evidence of colorectal neoplasia Recommendations: Findings of this examination were discussed with the patient as well urbano family. She was advised to follow with the biopsy results. She'll be seen in office in 3-4 weeks.
[2021-12-24 08:36] VITALS: BP 133/81; PULSE 72
== END 2021-12-24 08:40 | disposition home or self-care (01) ==
LOC: ORWHC2ENDO 06:50
PROVIDERS: ATTEND Internal Medicine Gastroenterology
DX: K52.9 Noninfective gastroenteritis and colitis, unspecified (principal); K29.50 Unspecified chronic gastritis without bleeding; K44.9 Diaphragmatic hernia without obstruction or gangrene; K57.30 Diverticulosis of large intestine without perforation or abscess without bleeding
CPT/HCPCS: 88305; 45380; 43239; J2704; J2001

== ENCOUNTER 2022-07-02 12:12 | Emergency (ER) | payer MEDICARE ==
[2022-07-02] MEDS ORDERED: IPRATROPIUM-ALBUTEROL 3 ML NEB INHALATION STA (12:28)
[2022-07-02] MEDS ORDERED: DEXAMETHASONE SOD PHOSPHATE 10 MG/ML 1 ML VIAL IM STA (12:28)
--- NOTE | 2022-07-02 12:31 | ED ---
General Adult HPI - General Chief complaint: Shortness of Breath Stated complaint: Cough Time Seen by Provider: 07/02/22 12:20 Source: patient, RN notes reviewed, old records reviewed Mode of arrival: ambulatory Limitations: no limitations - History of Present Illness Initial comments: Well-appearing 71-year-old female presents to the emergency room with complaints of cough and congestion for one week. She states that Monday she did go to a [facility] urgent care and was diagnosed with a clinical pneumonia not by x-ray. States that they did prescribe her antibiotics and steroids with an inhaler. Patient states she continues to have the cough and congestion with subjective fevers at home. Did take 2 Covid tests this past week both negative. Denies any chest pain. No nausea vomiting. Does have history of hypertension. -: week(s) (1) Severity scale (1-10): 0 Associated Symptoms: cough, fever/chills, other (congestion) Treatments Prior to Arrival: other (augmentin and prednisone prescribed by urgent care) - Related Data Home Medications Medication Instructions Recorded Confirmed Aspirin 81 mg PO BID 11/12/13 12/22/21 Ubidecarenone [Co Q-10] 200 mg PO DAILY 06/13/19 12/22/21 Ergocalciferol (Vitamin D2) 1,250 mcg PO Q7D 09/28/21 12/22/21 [Drisdol (50,000 Iu)] Levothyroxine Sodium [Synthroid] 88 mcg PO DAILY 09/28/21 12/22/21 Rosuvastatin Calcium [Crestor] 40 mg PO HS 09/28/21 12/22/21 Triamterene/Hydrochlorothiazid 1 tab PO DAILY 09/28/21 12/22/21 [Triamterene-Hctz 37.5-25 mg Tb] Valsartan 80 mg PO HS 09/28/21 12/22/21 Previous Rx's Medication Instructions Recorded Acetaminophen Tab [Tylenol] 650 mg PO Q6HR PRN tab 10/01/21 Albuterol Nebulized [Ventolin 2.5 mg INHALATION Q4H PRN #75 ml 07/02/22 Nebulized] Allergies Allergy/AdvReac Type Severity Reaction Status Date / Time No Known Allergies Allergy Verified 07/02/22 12:17 Review of Systems ROS Statement: Those systems with pertinent positive or pertinent negative responses have been documented in the HPI. ROS Other: All systems not noted in ROS Statement are negative. Past Medical History Past Medical History: Pneumonia Additional Past Medical History / Comment(s): Pt tested positive for covid one w [employer] ago, elevated LFTs, TIAs, pneumonias, pt states chronic abdominal pain, diverticular disease, chronic IBS/chronic diarrhea, past vertigo/PVCs/palpitations, post rudy fundaplication pt had fluid overload/pneumothorax and anemia, hypothyroid, sinus issues. History of Any Multi-Drug Resistant Organisms: None Reported Past Surgical History: Adenoidectomy, Appendectomy, Bladder Surgery, Cholecystectomy, Hernia Repair, Hysterectomy, Orthopedic Surgery, Tonsillectomy Additional Past Surgical History / Comment(s): Rudy fundiplication, bladder suspension/surgery done at [facility]/pt had difficult airway with this surgery but has not had problems with intubations since, hysterectomy with BSO, colonoscopies, R inguinal hernia repair, bilateral foot surgery for plantar fascitis, bilateral cataract removal/lens implants. Past Anesthesia/Blood Transfusion Reactions: No Reported Reaction Past Psychological History: No Psychological Hx Reported Smoking Status: Never smoker Past Alcohol Use History: None Reported Past Drug Use History: None Reported - Past Family History Mother History Unknown: Yes Family Medical History: CVA/TIA Father History Unknown: Yes Family Medical History: Cancer, CVA/TIA Additional Family Medical History / Comment(s): Pt cannot recall type of cancer Sister(s) Family Medical History: CVA/TIA Additional Family Medical History / Comment(s): Sister from a CVA General Exam Limitations: no limitations General appearance: alert, in no apparent distress Head exam: Present: atraumatic Eye exam: Present: normal appearance. Absent: scleral icterus, conjunctival injection, periorbital swelling ENT exam: Present: mucous membranes moist Neck exam: Present: full ROM. Absent: tenderness, meningismus Respiratory exam: Present: wheezes. Absent: respiratory distress, accessory muscle use Cardiovascular Exam: Present: regular rate GI/Abdominal exam: Present: soft Extremities exam: Present: full ROM, normal capillary refill. Absent: pedal edema Neurological exam: Present: alert, oriented X3, normal gait Psychiatric exam: Present: normal affect, normal mood Skin exam: Present: warm, dry, normal color. Absent: cyanosis, diaphoretic, petechiae, pallor Course Vital Signs 07/02/22 07/02/22 07/02/22 12:13 13:11 13:44 Temperature 97.8 F Pulse Rate 78 80 Respiratory 22 20 Rate Blood Pressure 164/84 O2 Sat by Pulse 97 Oximetry 07/02/22 07/02/22 07/02/22 13:56 14:00 15:00 Temperature 98.0 F Pulse Rate 84 68 Respiratory 18 Rate Blood Pressure 130/68 O2 Sat by Pulse 95 94 L Oximetry 07/02/22 07/02/22 15:54 17:04 Temperature 98.0 F Pulse Rate 70 67 Respiratory 20 20 Rate Blood Pressure 144/82 130/66 O2 Sat by Pulse 95 95 Oximetry EKG Findings - EKG Results: EKG: interpreted by ERMD (EKG interpreted by me shows a sinus rhythm with a ventricular rate of 68, [place] interval 0.185, QRS 0.109, QTC 0.413, normal axis, no significant change compared to old 06/12/2019.) Medical Decision Making - Medical Decision Making Was pt. sent in by a medical professional or institution (, PA, SUPER[employer], urgent care, hospital, or senior care...) When possible be specific @ -No Did you speak to anyone other than the patient for history (EMS, parent, family, police, friend...)? What history was obtained from this source @ -Patient's daughter at bedside recalls mother had a diagnosis of congestive heart failure and being on Lasix Did you review nursing and triage notes (agree or disagree)? Why? @ -I reviewed and agree with nursing and triage notes Were old charts reviewed (outside hosp., previous admission, EMS record, old EKG, old radiological studies, urgent care reports/EKG's, senior care records)? Report findings @ -Previous labs and EKG Differential Diagnosis (chest pain, altered mental status, abdominal pain women, abdominal pain men, vaginal bleeding, weakness, fever, dyspnea, syncope, headache, dizziness, GI bleed, back pain, seizure, CVA, palpatations, mental health, musculoskeletal)? @ -Differential Dyspnea: Coronary syndrome, arrhythmia, tamponade, asthma, COPD, pulmonary embolism, pneumonia, pneumothorax, pulmonary effusion, anaphylaxis, diabetic ketoacidosis, flailed chest, pulmonary contusion, diaphragmatic rupture, anemia, neuromus cular, this is not meant to be an all-inclusive list. EKG interpreted by me (3pts min.). @ -EKG interpreted by me shows a sinus rhythm with a ventricular rate of 68, [place] interval 0.185, QRS 0.109, QTC 0.413, normal axis, no significant change compare d to old 06/12/2019. X-rays interpreted by me (1pt min.). @ X-ray interpreted by me shows no evidence of focal consolidation, cardiac silhouette appears normal in size, trachea midline. CT interpreted by me (1pt min.). @ -None done U/S interpreted by me (1pt. min.). @ -None done What testing was considered but not performed or refused? (CT, X-rays, U/S, labs)? Why? @ -None What meds were considered but not given or refused? Why? @ -None Did you discuss the management of the patient with other professionals (professionals i.e. , PA, [employer], lab, RT, psych nurse, social welfare clerk, refining supervisor, teacher, disability insurance hearing officer, shoe parts caser)? Give summary @ -No Was smoking cessation discussed for >3mins.? @ -No Was critical care preformed (if so, how long)? @ -No Were there social determinants of health that impacted care today? How? (Homelessness, low income, unemployed, alcoholism, drug addiction, transportation, low edu. Level, literacy, decrease access to med. care, detention, rehab)? @ -No Was there de-escalation of care discussed even if they declined (Discuss DNR or withdrawal of care, Hospice)? DNR status @ -No What co-morbidities impacted this encounter? (DM, HTN, Smoking, COPD, CAD, Ca ncer, CVA, ARF, Chemo, Hep., AIDS, mental health diagnosis, sleep apnea, morbid obesity)? @ -IBS, fluid overload, anemia, hypothyroidism, IBS and elevated LFTs. Was patient admitted / discharged? Hospital course, mention meds given and route, prescriptions, significant lab abnormalities, going to OR and other pertinent info. @ -Discharged. 71-year-old female presents to the emergency room with complaints of cough and congestion for one week. Seen Monday at [facility] care and was diagnosed with a clinical pneumonia not by x-ray. States that they did prescribe her augmentin, prednisone and albuterol inhaler. Patient states she continues to have the cough and congestion with subjective fevers at home. Did take 2 Covid tests this past week both negative. Denies any chest pain. No nausea vomiting. According to medical records patient has a history of IBS, fluid overload, anemia, hypothyroidism, IBS and elevated LFTs. Ejection fraction 50-55% per Dr. Treadwell's notes. Further investigation patient states that she does have a history of congestive heart failure and was on Lasix for a short period of time and was switched to hydrochlorothiazide. EKG interpreted by me shows a sinus rhythm with a ventricular rate of 68, [place] interval 0.185, QRS 0.109, QTC 0.413, normal axis, no significant change tenzin red to old 06/12/2019. CBC unremarkable. D-dimer age-appropriate for 0.71. BUN and creatinine are elevated however patient has had elevation in the past. ALT and alk phos also elevated with elevations in the past. Influenza RSV coronavirus swab is negative. X-ray interpreted by me shows no evidence of focal consolidation, cardiac silhouette appears normal in size, trachea midline. Radiologist interpretation mild cardiomegaly without acute pulmonary process. No significant changes compared to prior 09/28/2021. BNP elevated at 3310, also elevated June 2019 at 5650. Patient continues to have evidence of expiratory wheezing but is in no respiratory distress. Denies any chest pain. No pedal edema. She was offered admission and declined. Patient was given Lasix 20 mg IV. Vital signs are stable pulse ox between 95 and 97% on room air. She states she remembers that she was on Lasix in the past and was changed to hydrochlorothiazide. Case discussed with Dr. Ludwig patient can be discharged home and was directed to return with any new or concerning symptoms. Chest pain or shortness of breath. Daughter and patient are agreeable to this plan of care. Patient states she does have an appointment with Dr. Brown her recruit instructor next month. Undiagnosed new problem with uncertain prognosis? @ -No Drug Therapy requiring intensive monitoring for toxicity (Heparin, Nitro, Insulin, Cardizem)? @ -No Were any procedures done? @ -No Diagnosis/symptom? @ -Mild congestive heart failure, URI Acute, or Chronic, or Acute on Chronic? @ -Acute Uncomplicated (without systemic symptoms) or Complicated (systemic symptoms)? @ -uncomplicated Side effects of treatment? @ -No Exacerbation, Progression, or Severe Exacerbation? @ -No Poses a threat to life or bodily function? How? (Chest pain, [place], [place], pneumonia, PE, COPD, DKA, ARF, appy, cholecystitis, CVA, Diverticulitis, Homicidal, Suicidal, threat to staff... and all critical care pts) @ -No - Lab Data Result diagrams: 07/02/22 14:36 07/02/22 15:10 Lab Results 07/02/22 07/02/22 07/02/22 Range/Units 12:49 14:36 15:10 WBC 5.5 (3.8-10.6) k/uL RBC 4.77 (3.80-5.40) m/uL Hgb 14.0 (11.4-16.0) gm/dL Hct 42.1 (34.0-46.0) % MCV 88.4 (80.0-100.0) fL MCH 29.4 (25.0-35.0) pg MCHC 33.3 (31.0-37.0) g/dL RDW 13.4 (11.5-15.5) % Plt Count 218 (150-450) k/uL MPV 8.0 Neutrophils % 66 % Lymphocytes % 24 % Monocytes % 8 % Eosinophils % 0 % Basophils % 1 % Neutrophils # 3.6 (1.3-7.7) k/uL Lymphocytes # 1.3 (1.0-4.8) k/uL Monocytes # 0.5 (0-1.0) k/uL Eosinophils # 0.0 (0-0.7) k/uL Basophils # 0.0 (0-0.2) k/uL D-Dimer (<0.60) mg/L FEU Sodium 139 (137-145) mmol/L Potassium 4.3 (3.5-5.1) mmol/L Chloride 104 (98-107) mmol/L Carbon Dioxide 28 (22-30) mmol/L Anion Gap 7 mmol/L BUN 32 H (7-17) mg/dL Creatinine 1.05 H (0.52-1.04) mg/dL Est GFR (CKD-EPI)AfAm 62 (>60 ml/min/1.73 sqM) Est GFR (CKD-EPI)NonAf 54 (>60 ml/min/1.73 sqM) Glucose 94 (74-99) mg/dL Calcium 9.3 (8.4-10.2) mg/dL Total Bilirubin 0.9 (0.2-1.3) mg/dL AST 36 (14-36) U/L ALT 47 H (4-34) U/L Alkaline Phosphatase 151 H (38-126) U/L NT-Pro-B Natriuret Pep pg/mL Total Protein 7.7 (6.3-8.2) g/dL Albumin 4.3 (3.5-5.0) g/dL Influenza Type A (PCR) Not Detected (Not Detectd) Influenza Type B (PCR) Not Detected (Not Detectd) RSV (PCR) Not Detected (Not Detectd) SARS-CoV-2 (PCR) Not Detected (Not Detectd) 07/02/22 07/02/22 Range/Units 15:10 15:10 WBC (3.8-10.6) k/uL RBC (3.80-5.40) m/uL Hgb (11.4-16.0) gm/dL Hct (34.0-46.0) % MCV (80.0-100.0) fL MCH (25.0-35.0) pg MCHC (31.0-37.0) g/dL RDW (11.5-15.5) % Plt Count (150-450) k/uL MPV Neutrophils % % Lymphocytes % % Monocytes % % Eosinophils % % Basophils % % Neutrophils # (1.3-7.7) k/uL Lymphocytes # (1.0-4.8) k/uL Monocytes # (0-1.0) k/uL Eosinophils # (0-0.7) k/uL Basophils # (0-0.2) k/uL D-Dimer 0.71 H (<0.60) mg/L FEU Sodium (137-145) mmol/L Potassium (3.5-5.1) mmol/L Chloride (98-107) mmol/L Carbon Dioxide (22-30) mmol/L Anion Gap mmol/L BUN (7-17) mg/dL Creatinine (0.52-1.04) mg/dL Est GFR (CKD-EPI)AfAm (>60 ml/min/1.73 sqM) Est GFR (CKD-EPI)NonAf (>60 ml/min/1.73 sqM) Glucose (74-99) mg/dL Calcium (8.4-10.2) mg/dL Total Bilirubin (0.2-1.3) mg/dL AST (14-36) U/L ALT (4-34) U/L Alkaline Phosphatase (38-126) U/L NT-Pro-B Natriuret Pep 3310 pg/mL Total Protein (6.3-8.2) g/dL Albumin (3.5-5.0) g/dL Influenza Type A (PCR) (Not Detectd) Influenza Type B (PCR) (Not Detectd) RSV (PCR) (Not Detectd) SARS-CoV-2 (PCR) (Not Detectd) Disposition Clinical Impression: URI (upper respiratory infection), Congestive heart failure Disposition: HOME SELF-CARE Condition: Good Instructions (If sedation given, give patient instructions): Upper Respiratory Infection (ED) Additional Instructions: Continue antibiotics and steroids as prescribed by the urgent care. Use albuterol nebulizer every 4 hours as needed for wheezing. Follow-up with your primary care doctor next week and advise her that your BNP level was elevated today at 3310. Keep your appointment with Dr Brown next month. Return to the emergency room with any new or concerning symptoms including chest pain or difficulty in breathing. Prescriptions: Albuterol Nebulized [Ventolin Nebulized] 2.5 mg INHALATION Q4H PRN #75 ml PRN Reason: difficulty in breathing Is patient prescribed a controlled substance at d/c from ED?: No Referrals: Leila Ding MD [Primary Care Provider] - 1-2 days Time of Disposition: 16:25
--- NOTE | 2022-07-02 13:09 | XR ---
EXAMINATION TYPE: XR chest 2V DATE OF EXAM: 07/02/2022 COMPARISON: Chest x-ray September 28, 2021 HISTORY: Cough and fever TECHNIQUE: Frontal and lateral views of the chest are obtained. FINDINGS: There is no suspicious focal air space opacity, pleural effusion, or pneumothorax seen. T he cardiac silhouette size is mildly enlarged. Cholecystectomy clips are redemonstrated. There is sco liosis redemonstrated. IMPRESSION: Mild cardiomegaly without acute pulmonary process. No significant change from prior.
[2022-07-02 13:13] VITALS: RESP 20
[2022-07-02] MEDS ORDERED: ALBUTEROL NEBULIZED 2.5 MG/3 ML INHALATION STA (14:09)
[2022-07-02 14:46] LABS: Basophils % (A) 1 %; Eosinophils % (A) 0 %; HCT 42.1 % (34.0-46.0); Lymphocytes # (A) 1.3 k/uL (1.0-4.8); Lymphocytes % (A) 24 %; MCH 29.4 pg (25.0-35.0); MCHC 33.3 g/dL (31.0-37.0); MCV 88.4 fL (80.0-100.0); Monocytes # (A) 0.5 k/uL (0-1.0); Monocytes % (A) 8 %; Neutrophils # (A) 3.6 k/uL (1.3-7.7); Neutrophils % (A) 66 %; Platelet Count 218 k/uL (150-450); RBC 4.77 m/uL (3.80-5.40); RDW 13.4 % (11.5-15.5); WBC 5.5 k/uL (3.8-10.6)
[2022-07-02] MEDS ORDERED: ALBUTEROL HFA INHALER INHALATION STA (14:59)
[2022-07-02 15:32] LABS: Albumin 4.3 g/dL (3.5-5.0); Calcium 9.3 mg/dL (8.4-10.2); Potassium 4.3 mmol/L (3.5-5.1); Total Bilirubin 0.9 mg/dL (0.2-1.3); Total Protein 7.7 g/dL (6.3-8.2)
[2022-07-02] MEDS ORDERED: FUROSEMIDE 10 MG/ML 2 ML VIAL IV ONE (16:23)
[2022-07-02 17:03] VITALS: TEMP 98
[2022-07-02 17:04] VITALS: BP 130/66; PULSE 67
== END 2022-07-02 17:04 | disposition home or self-care (01) ==
LOC: EC 12:12
DX: J06.9 Acute upper respiratory infection, unspecified (principal); I11.0 Hypertensive heart disease with heart failure; I50.9 Heart failure, unspecified; E03.9 Hypothyroidism, unspecified; Z20.822 Contact with and (suspected) exposure to COVID-19; Z79.82 Long term (current) use of aspirin; Z79.890 Hormone replacement therapy; Z86.73 Personal history of transient ischemic attack (TIA), and cerebral infarction without residual deficits; Z86.16 Personal history of COVID-19
CPT/HCPCS: 36415; 94640 ×2; 93005; 85379; 83880; 80053; 85025; 87636; 71046; 99285; 96374; 96372; J1100; J1940

== ENCOUNTER → 2023-06-05 | Outpatient (CLI) | payer MEDICARE | END | disposition home or self-care (01) | LOC: LABWHC1 09:58 | PROVIDERS: ATTEND Family Medicine | DX: R73.03 Prediabetes (principal) | CPT/HCPCS: 36415; 83036 ==

== ENCOUNTER → 2023-10-05 | Outpatient (CLI) | payer MEDICARE ==
--- NOTE | 2023-10-05 12:19 | US ---
EXAMINATION TYPE: US abdomen complete DATE OF EXAM: 10/05/2023 COMPARISON: 09/28/21, CT: 09/28/21 CLINICAL INDICATION: Female, 73 years old with history of K44.9 DIAPHRAGMATIC HERNIA; nausea TECHNIQUE: Multiple sonographic images of the abdomen are obtained. FINDINGS: EXAM MEASUREMENTS: Liver Length: 13.2 cm Gallbladder: Surgically absent CBD: 0.54 cm Spleen: 9.5 cm Right Kidney: 8.7 x 4.7 x 4.2 cm Left Kidney: 9.1 x 4.1 x 4.9 cm Pancreas: The pancreatic body and tail are obscured by bowel gas shadowing. Visualized pancreatic he ad shows no gross abnormal body. Liver: Slightly heterogeneous echotexture may be undetectable bases due to body habitus. Gallbladder: Surgically absent Evidence for sonographic Walsh's sign: No CBD: wnl Spleen: wnl Right Kidney: cystic area seen in sup pole measuring 2.9 x 2.9 x 2.5 cm. No hydronephrosis. Left Kidney: wnl Upper IVC: wnl Abd Aorta: wnl IMPRESSION: No gallstones or biliary ductal dilatation. Benign upper pole right renal cortical cyst measuring up to 2.9 cm.
--- NOTE | 2023-10-10 11:55 | MM ---
Reason for Exam: Screening (asymptomatic). Last mammogram was performed 2 year(s) and 8 month(s) ago. Patient History: Menarche at age 11. First Full-Term at age 17. Left ovary removed at age 47. Right ovary removed at age 47. Hysterectomy at age 47. Postmenopausal. Patient has history of breast feeding. Father had breast cancer at or over age 50. Risk Values: Myriam 5 year model risk: 1.4%. NCI Lifetime model risk: 3.4%. Prior Study Comparison: 08/25/2009 Bilateral Screening Mammogram, [facility]. 12/13/2011 Bilateral Screening Mammogram, [facility]. 01/25/2021 Bilateral Screening Mammogram, [facility]. Tissue Density: The breasts are heterogeneously dense, which may obscure small masses. Findings: Analyzed By CAD. Right breast: There is no suspicious group of microcalcifications or new suspicious mass. Left breast: There is no suspicious group of microcalcifications or new suspicious mass. Overall Assessment: Negative, BI-RAD 1 Management: Screening Mammogram of both breasts in [address] [facility] will attempt to contact patient to return for supplemental views and ultrasound if indicated. Patient should continue monthly self-breast exams. A clinical breast exam by your physician is recommended on an annual basis. This exam should not preclude additional follow-up of suspicious palpable abnormalities. Note on Myriam scores and lifetime risk: 1. A Myriam score greater than 3% is considered moderate risk. If this is the case, consider specialist referral to assess eligibility for a risk reducing agent. 2. If overall lifetime risk for the development of breast cancer is 20% or higher, the patient may qualify for future screening with alternating mammogram and breast MRI. Electronically signed and approved by: Rodrick Montemayor DO
== END | disposition home or self-care (01) ==
LOC: RADUSWWP 08:01
PROVIDERS: ATTEND Family Medicine
DX: Z12.31 Encounter for screening mammogram for malignant neoplasm of breast (principal); R92.333 Mammographic heterogeneous density, bilateral breasts; K44.9 Diaphragmatic hernia without obstruction or gangrene; R11.2 Nausea with vomiting, unspecified; Z78.0 Asymptomatic menopausal state; Z80.3 Family history of malignant neoplasm of breast; N28.1 Cyst of kidney, acquired; Z90.722 Acquired absence of ovaries, bilateral
CPT/HCPCS: 76700; 77063; 77067

== ENCOUNTER → 2024-07-22 | Outpatient (CLI) | payer MEDICARE ==
[2024-07-22 18:28] LABS: Basophils # (A) 0.08 X 10*3/uL (0.00-0.10); Basophils % (A) 1.1 %; Eosinophils # (A) 0.27 X 10*3/uL (0.04-0.35); Eosinophils % (A) 3.7 %; HCT 41.5 % (37.2-46.3); HGB 12.6 g/dL (12.0-15.0); Lymphocytes # (A) 1.91 X 10*3/uL (0.90-5.00); Lymphocytes % (A) 26.2 %; MCH 27.5 pg (27.0-32.0); MCHC 30.4 g/dL (32.0-37.0); MCV 90.4 FL (80.0-97.0); Mean Platelet Volume 10.6 FL (9.5-12.2); Monocytes # (A) 0.45 X 10*3/uL (0.20-1.00); Monocytes % (A) 6.2 %; NRBC Per 100 WBC 0.02 X 10*3/uL (0.00-0.01); Neutrophils # (A) 4.54 X 10*3/uL (1.80-7.70); Neutrophils % (A) 62.3 %; Platelet Count 250 X 10*3/uL (140-440); RBC 4.59 X 10*6/uL (4.10-5.20); WBC 7.29 X 10*3/uL (4.50-10.00)
[2024-07-22 18:47] LABS: Protein, Total 7.1 g/dL (6.2-8.2)
[2024-07-22 18:52] LABS: ALT 17 U/L (8-44); AST 30 U/L (13-35); Albumin 4.3 g/dL (3.8-4.9); Albumin/Globulin Ratio 1.48 Ratio (1.60-3.17); Alkaline Phosphatase 90 U/L (41-126); BUN/Creat Ratio 22.77 Ratio (12.00-20.00); Blood Urea Nitrogen 29.6 mg/dL (9.0-27.0); Calcium 9.7 mg/dL (8.7-10.3); Carbon Dioxide 20.8 mmol/L (21.6-31.8); Chloride 105 mmol/L (96-109); Ferritin 95.1 ng/mL (10.0-291.0); Globulin 2.9 g/dL (1.6-3.3); Glucose 102 mg/dL (70-110); Iron 58 UG/DL (50-170); Potassium 4.9 mmol/L (3.5-5.5); Sodium 140 mmol/L (135-145); Total Bilirubin 0.7 mg/dL (0.3-1.2); Total Iron Binding Capacity 358 UG/DL (228-460); Total Protein 7.2 g/dL (6.2-8.2)
[2024-07-22 18:55] LABS: Hepatitis B Surface Antigen Nonreactive (Nonreactive); Hepatitis C IgG Antibody Nonreactive (Nonreactive)
[2024-07-22 19:08] LABS: Ceruloplasmin 27.1 mg/dL (20.0-60.0)
== END | disposition home or self-care (01) ==
LOC: LABWHC1 13:34
PROVIDERS: ATTEND Internal Medicine Gastroenterology
DX: R74.8 Abnormal levels of other serum enzymes (principal)
CPT/HCPCS: 36415; 80053; 82164; 82390; 82728; 83516; 83540; 83550; 84165; 85025; 86038; 86039; 86803; 87340

== ENCOUNTER → 2024-08-05 | Outpatient (CLI) | payer MEDICARE ==
--- NOTE | 2024-08-05 08:57 | US ---
EXAMINATION TYPE: US liver DATE OF EXAM: 08/05/2024 COMPARISON: CLINICAL INDICATION: Female, 74 years old with history of R74.8 ABNORMAL LEVELS OF OTHER SERUM ENZYME S; Abnormal labs. Hx renal cyst. Gb removed. TECHNIQUE: Grayscale and color Doppler imaging of the right upper quadrant was performed. FINDINGS: EXAM MEASUREMENTS: Liver Length: 15.2 cm CBD: 0.8 cm Right Kidney: 8.2 x 4.4 x 4.1 cm Pancreas: Head and tail obscured by overlying bowel gas. Main pancreatic duct- 4.1 mm. Liver: Intrahepatic biliary dilatation. Left anechoic lesion in caudate lobe = 1.3 x 1.3 x 1.1 cm Gallbladder: Surgically absent Evidence for sonographic Walsh's sign: neg CBD: wnl Right Kidney: Superior medial anechoic lesion = 2.5 x 2.4 x 2.2 cm IMPRESSION: 1. Prominence of the main pancreatic duct at 4.1 mm without distinct mass. Correlate clinically. 2. Intrahepatic biliary ductal dilatation could be related to previous cholecystectomy. 3. Right renal cyst. [facility], , 08/05/2024 8:54 AM
== END | disposition home or self-care (01) ==
LOC: RADUSWWP 07:40
PROVIDERS: ATTEND Internal Medicine Gastroenterology
DX: N28.1 Cyst of kidney, acquired (principal); K83.8 Other specified diseases of biliary tract; R74.8 Abnormal levels of other serum enzymes
CPT/HCPCS: 76705